=== PATIENT | male | born 1935 | race Caucasian/White ===

== ENCOUNTER 2017-06-09 10:22 | Emergency (ER) | payer MEDICARE ==
[2017-06-09 10:53] VITALS: BP 141/45
--- NOTE | 2017-06-09 11:09 | UC ---
Skin Complaint HPI - HPI Summary HPI Summary: Pt presents with c/o of facial cheek redness and mild swelling,. Pt was given PO BActrim by PCP 2 days ago for bronchitis symptoms. Pt has taken 3 PO tabs and woke this morning with bilateral facial cheek erythema and mild swelling. Denies fever or chills. is on Injectable RA medication that he self administers. Has been on RA medication for 1 year. - History of Current Complaint Chief Complaint: UCRespiratory Time Seen by Provider: 06/09/17 10:39 Stated Complaint: UPPER RESPIRATORY/FACIAL SKIN COMPLAINT Hx Obtained From: Patient Onset/Duration: Sudden Onset, Lasting Hours, Still Present Skin Exposure Onset/Duration: Hours Ago Timing: Constant Onset Severity: Mild Current Severity: Mild Location: Face Character: Redness, Raised Aggravating Factor(s): Other - unsure Alleviating Factor(s): Unknown Associated Signs & Symptoms: Positive: Rash Related History: Recent change in medication - Allergy/Home Medications Allergies/Adverse Reactions: Allergies Allergy/AdvReac Type Severity Reaction Status Date / Time Diazepam [From Valium] Allergy Unknown Verified 06/09/17 10:47 Reaction Details Oxycodone Allergy Unknown Verified 06/09/17 10:47 Reaction Details Home Medications: Home Medications Vitamin B Complex CAP* [B Complex CAP*] 1 cap PO DAILY 06/09/17 [History Confirmed 06/09/17] amLODIPine TAB* [Norvasc 5 mg TAB*] 5 mg PO DAILY 06/09/17 [History Confirmed ] Review of Systems Constitutional: Negative Skin: Rash - erythema bilateral facial cheeks Eyes: Negative ENT: Other - nasal congestion Respiratory: Cough Cardiovascular: Negative Gastrointestinal: Negative Genitourinary: Negative Motor: Decreased ROM - secondary to hx of RA Neurovascular: Negative Musculoskeletal: Arthralgia, Myalgia Neurological: Negative Psychological: Negative Is Patient Immunocompromised?: No All Other Systems Reviewed And Are Negative: Yes PMH/Surg Hx/FS Hx/Imm Hx Previously Healthy: No Cardiovascular History: Cardiac Disease Respiratory History: Bronchitis - Surgical History Surgical History: Yes Surgery Procedure, Year, and Place: Endoscopies with "bllod blisters in his stomach", 2016, [facility]; Left LAZ, 2009, [facility]; Bilateral TKA, 1994 and 1995, [facility]; Bilateral Hand and Feet Knuckle Reconstruction, [id number]; [facility]Z, [facility] - Family History Known Family History: Positive: Cardiac Disease - Social History Occupation: Retired Lives: With Family Alcohol Use: none since 1972; "alcoholic" Substance Use Type: None Smoking Status (MU): Former Smoker Length of Time of Smoking/Using Tobacco: 2 PPD x 40 Years Have You Smoked in the Last Year: No When Did the Patient Quit Smoking/Using Tobacco: 1989 - Immunization History Most Recent Influenza Vaccination: February 2017 Most Recent Pneumonia Vaccination: ~2015 Vaccination Up to Date: Yes Physical Exam Triage Information Reviewed: Yes Appearance: Well-Appearing Vital Signs: Initial Vital Signs Temp 98.9 F 06/09/17 10:42 Pulse 90 06/09/17 10:42 Resp 16 06/09/17 10:42 BP 141/45 06/09/17 10:42 Pulse Ox 90 06/09/17 10:42 Vital Signs Reviewed: Yes Eye Exam: Normal ENT Exam: Other ENT: Positive: Nasal congestion Neck exam: Normal Respiratory Exam: Other Respiratory: Positive: Normal breath sounds, No respiratory distress Cardiovascular Exam: Other Cardiovascular: Positive: Murmur:Sys:Grade _?_/ Musculoskeletal Exam: Normal Neurological Exam: Normal Psychological Exam: Normal Skin: Positive: rashes - bilateral erythema facial cheeks. mild warmth to rash. Skin in tact, no vessicles, blisters or peeling Course/Dx - Differential Diagnoses - Skin Complaint Differential Diagnoses: Cellulitis, Medication; Adverse Reaction, Odell- Hua Syndrome, Urticaria - Diagnoses Provider Diagnoses: medication adverse reaction Discharge - Discharge Plan Condition: Stable Disposition: HOME Prescriptions: Benzonatate CAP* [Tessalon 100 MG CAP*] 100 mg PO Q8H PRN #21 cap PRN Reason: Cough Cetirizine* [ZyrTEC 10 MG TAB*] 10 mg PO DAILY #10 tab Patient Education Materials: Antibiotic Medication Allergy (ED), Viral Syndrome (ED) Referrals: Oriana Flores MD [Primary Care Provider] - If Needed
== END 2017-06-09 11:19 | disposition home or self-care (01) ==
LOC: UCCORT 10:22
DX: R60.9 Edema, unspecified (principal); T37.0X5A Adverse effect of sulfonamides, initial encounter; F10.21 Alcohol dependence, in remission; M06.9 Rheumatoid arthritis, unspecified; I25.10 Atherosclerotic heart disease of native coronary artery without angina pectoris; Z88.5 Allergy status to narcotic agent; Z87.09 Personal history of other diseases of the respiratory system; Z87.891 Personal history of nicotine dependence; Z96.642 Presence of left artificial hip joint
CPT/HCPCS: 99212; G0463

== ENCOUNTER 2018-06-13 14:10 | Emergency (ER) | payer MEDICARE ==
--- OUTSIDE RECORDS SUMMARY | 2018-06-13 14:48 | XMS REPORT | Continuity of Care Document ---
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 Oriana Flores MD Primary Care Physician Unavailable Payers Type Date Identification Numbers Payment Provider Subscriber Policy Number: [id number] Medicare Tim Paris PayID: [id number] [employer] [address] [place] [address] Policy Number: [id number] [facility] Care Option Tim Paris PayID: [id number] Claims, [address] [place] [address] Advance Directives Description No Information Available Problems Date Description Provider Status Onset: 09/28/2010 Osteoporosis Oriana Flores MD Active Onset: 09/28/2010 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 Onset: 09/28/2010 Cardiovascular symptoms Oriana Flores MD Active Onset: 09/28/2010 Hyperlipidemia Oriana Flores MD Active Onset: 09/28/2010 Peripheral vascular disease Oriana Flores MD Active Onset: 09/28/2010 Rheumatoid arthritis Oriana Flores MD Active Onset: 09/28/2010 Gastroesophageal reflux disease Oriana Flores MD Active Onset: 09/28/2010 Posterior rhinorrhea Oriana Flores MD Active Onset: 09/28/2010 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 Onset: 09/28/2010 Conduction disorder of the heart Oriana Flores MD Active Onset: 09/28/2010 Abdominal pain Oriana Flores MD Active Onset: 09/28/2010 Cortical senile cataract Oriana Flores MD Active Onset: 09/28/2010 Osteochondropathy Oriana Flores MD Active Onset: 03/03/2015 Anemia due to chronic blood loss Soham Stephen MD Active Onset: 05/12/2015 Nausea and vomiting Soham Stephen MD Active Onset: 05/12/2015 Esophageal dysphagia Soham Stephen MD Active Onset: 05/17/2017 Hemorrhage of rectum and anus Soham Stephen MD Active Family History Date Family Member(s) Problem(s) Comments Mother No Current Problems First Brother Heart Disease Social History Type Date Description Comments Sex Unknown Tobacco Use Start: Unknown End: Unknown Patient is a former smoker Smoking Status Reviewed: 05/29/18 Patient is a former smoker Allergies, Adverse Reactions, Alerts Date Description Reaction Status Severity Comments 03/03/2015 Valium Active Medications Medication Date Status Form Strength Qnty SIG Indications Ordering Provider Carafate 05/07/ Active Suspension 1GM/10ML 420un 1 gm by Soham Shirley 2014 its mouth four [place], times a MD day before meals at bedtime Pantoprazole 12/30/ Active Tablets DR 40mg 90tab 1 by mouth Carola Flores 2014 s bid Oriana Hunter MD Claritin 08/27/ Active Capsules 10mg 90cap 1 po qd Mark 2014 s Oriana Hunter MD Ipratropium / Active Solution 0.03% instill 2 Unknown [place] 0000 sprays in each nostril twice a day Vitamin D / Active Tablets 1000Unit 1 by mouth Unknown 0000 every day Multivitamins / Active Unknown 0000 Methotrexate / Active Unknown Sodium 0000 Folic Acid / Active Unknown 0000 Proctocort 03/13/ Hx Cream 1% 28.35 apply to K60.0 Mark 2016 - 0unit rectal Oriana Hunter, 11/22/ s area after 2018 bowel movements and as needed Proctocort 03/13/ Hx Cream 1% 28.35 apply to K60.0 Mark 2016 - 0unit rectal Oriana Hunter, 02/14/ s area after 2018 bowel movements and as needed Proair HFA 06/23/ Hx Aerosol 108(90Bas 25.5u 2 puffs 4 J20.9 Mark 2017 - e) nits x daily Oriana Hunter, 02/14/ mcg/Act 2017 Ondansetron 11/12/ Hx Tablets 4mg 10tab take 1 Mark 2014 - Dispers s tablet by Oriana Hunter 10/28/ mouth 2015 every 6 to 8 hours if needed Ondansetron 11/12/ Hx Tablets 4mg 10tab take 1 Mark 2014 - Dispers s tablet by Oriana Hunter, 05/17/ mouth 2016 every 6 to 8 hours if needed Aspirin Ec 01/20/ Hx Tablets DR 81mg 100ta 1 by mouth 433.10 Mark Lo-Dose 2013 - every day Oriana Hunter 2017 Sulfamethoxazol 12/23/ Hx Tablets 800-160mg 14tab 1 by mouth andrea Flores/Trimethoprim 2013 twice a DILLON Diaz 2014 Sulfamethoxazol 12/23/ Hx Tablets 800-160mg 14tab 1 by mouth andrea Flores/Trimethoprim 2013 twice a DILLON Diaz 2015 Claritin 08/27/ Hx Capsules 10mg 90cap 1 po qd Mark 2013 Oriana Hunter 2015 Prednisone 00/00/ Hx Tablets 5mg 25tab 4 tabs as Unknown 0000 - s directed 2014 Humira /00/ Hx PSKT 40mg/0.8M Unknown Pediatric 0000 - L Crohns Disease 10/28/ Starter Pack 2015 Prednisone 00/00/ Hx Tablets 5mg 25tab 4 tabs as Unknown 0000 - s directed 2015 Humira Pen 00/ Hx PNKT 40mg/0.8M Unknown 0000 - L 2016 Prednisone 00/00/ Hx Tablets 5mg 25tab 4 tabs as Unknown 0000 - s directed 2016 Amlodipine 00/ Hx Tablets 5mg 1 by mouth Unknown Besylate 0000 - every day 2017 Actemra 00/ Hx Soln Prefill 162mg/0.9 infusion Unknown 0000 - Syringe ML monthly 2017 Xeljanz 00/00/ Hx Tablets 5mg 1 by mouth Unknown 0000 - twice a 2017 Prednisolone /00/ Hx Suspension 1% 1 drop in Unknown Acetate 0000 - left eye 02/14/ 3x/ day 2018 Immunizations Description No Information Available Vital Signs Date Vital Result Comment 05/29/2018 1:52pm Height 68 inches 5'8" Weight 144.00 lb BP Systolic 140 mmHg BP Diastolic 72 mmHg Heart Rate 88 /min BMI (Body Mass Index) 21.9 kg/m2 02/14/2018 2:46pm Height 68 inches 5'8" Weight 143.00 lb BP Systolic 160 mmHg BP Diastolic 72 mmHg Heart Rate 80 /min BMI (Body Mass Index) 21.7 kg/m2 11/22/2017 1:13pm Height 68 inches 5'8" Weight 141.00 lb BMI (Body Mass Index) 21.4 kg/m2 05/17/2017 3:21pm Height 68 inches 5'8" Weight 145.00 lb BP Systolic 122 mmHg BP Diastolic 80 mmHg Heart Rate 66 /min BMI (Body Mass Index) 22.0 kg/m2 10/29/2015 12:39pm Height 68 inches 5'8" Weight 135.00 lb BP Systolic 128 mmHg BP Diastolic 50 mmHg Heart Rate 92 /min BMI (Body Mass Index) 20.5 kg/m2 05/12/2015 1:13pm Height 68 inches 5'8" Weight 136.00 lb BMI (Body Mass Index) 20.7 kg/m2 03/03/2015 2:59pm Height 68 inches 5'8" Weight 138.00 lb BP Systolic 130 mmHg BP Diastolic 80 mmHg Heart Rate 78 /min BMI (Body Mass Index) 21.0 kg/m2 Results Test Date Facility Test Result H/L Range Note CBC W/Auto 05/14/2018 [facility] White Blood <pending> Differential(!) Count Ser Auto CNT RBC Red Blood Count <pending> Hemoglobin Blood <pending> Hematocrit <pending> MCV (Corpuscular Volume) <pending> MCH (Corpuscular Hemoglobin) <pending> MCHC (Corpuscular Hemog Conc) <pending> RDW <pending> Platelet Count Blood Auto CNT <pending> MPV <pending> Lymph% <pending> [place]% <pending> Neutrophil % <pending> Absolute Lymphocytes <pending> Absolute Monocytes <pending> Absolute Neutrophils <pending> CMP(!) 05/14/2018 [facility] Sodium(!) <pending> Potassium(!) <pending> Chloride Serum/Plasma(!) <pending> Carbon Dioxide Ser/Plasm(!) <pending> BUN - Urea Nitrogen(!) <pending> Calcium Ser/Plasma Mass/Vol(!) <pending> Creatinine Serum Mass/Vol(!) <pending> Glucose Serum(!) <pending> BUN/Creatinine Ratio(!) <pending> Albumin Serum/Plasma(!) <pending> Alkaline Phosphatase(!) <pending> Bilirubin Total Mass/Vol(!) <pending> Ast - Sgot <pending> Alt - SGPT <pending> Protein Total <pending> CBC Auto Diff 05/02/2018 [facility] [place] [place] White Blood Count 8.1 10^3/uL N 3.5-10.8 Red Blood Count 3.03 10^6/uL Low 4.00-5.40 Hemoglobin 8.1 g/dL Low 14.0-18.0 Hematocrit 25 % Low 42-52 Mean Corpuscular Volume 83 fL N 80-94 Mean Corpuscular Hemoglobin 27 pg N 27-31 Mean Corpuscular HGB Conc 32 g/dL N 31-36 Red Cell Distribution Width 18 % High 10.5-15 Platelet Count 361 10^3/uL N 150-450 Mean Platelet Volume 7.9 fL N 7.4-10.4 Abs Neutrophils 6.1 10^3/uL N 1.5-7.7 Abs Lymphocytes 1.0 10^3/uL N 1.0-4.8 Abs Monocytes 0.8 10^3/uL N 0-0.8 Abs Eosinophils 0.2 10^3/uL N 0-0.6 Abs Basophils 0 10^3/uL N 0-0.2 Abs Nucleated RBC 0 10^3/uL Granulocyte % 75.4 % N 38-83 Lymphocyte % 12.4 % Low 25-47 Monocyte % 9.8 % High 0-7 Eosinophil % 1.9 % N 0-6 Basophil % 0.5 % N 0-2 Nucleated Red Blood Cells % 0 CBC Auto Diff 03/27/2018 [facility] [place] [place] White Blood Count 6.9 10^3/uL N 3.5-10.8 Red Blood Count 3.80 10^6/uL Low 4.00-5.40 Hemoglobin 10.5 g/dL Low 14.0-18.0 Hematocrit 32 % Low 42-52 Mean Corpuscular Volume 84 fL N 80-94 Mean Corpuscular Hemoglobin 28 pg N 27-31 Mean Corpuscular HGB Conc 33 g/dL N 31-36 Red Cell Distribution Width 21 % High 10.5-15 Platelet Count 324 10^3/uL N 150-450 Mean Platelet Volume 8.3 um3 N 7.4-10.4 Abs Neutrophils 5.1 10^3/uL N 1.5-7.7 Abs Lymphocytes 1.0 10^3/uL N 1.0-4.8 Abs Monocytes 0.7 10^3/uL N 0-0.8 Abs Eosinophils 0.1 10^3/uL N 0-0.6 Abs Basophils 0 10^3/uL N 0-0.2 Abs Nucleated RBC 0 10^3/uL Granulocyte % 73.9 % N 38-83 Lymphocyte % 15.2 % Low 25-47 Monocyte % 9.7 % High 0-7 Eosinophil % 0.8 % N 0-6 Basophil % 0.4 % N 0-2 Nucleated Red Blood Cells % 0 Laboratory test 12/11/2017 [facility] [place] [place] Surgical SEE RESULT 1 finding Interface Order BELOW Basic Metabolic 04/04/2017 N2N/CCD Import BUN/Creatinine 14.7 1 6-22 2 Panel Ratio Calcium 9.6 mg/dL 8.6-10.3 Carbon Dioxide 31 mmol/L 20-31 Chloride 104 mmol/L 98-110 Creatinine 0.70 mg/dL 0.70-1.11 Egfr 102 ML/MIN/1.73M2 > Or=60 Egfr Non-Afr. [place] 88 ML/MIN/1.73M2 > Or=60 3 Glucose 87 mg/dL 65-99 Potassium 4.1 mmol/L 3.5-5.3 Sodium 142 mmol/L 135-146 Urea Nitrogen 10 mg/dL 7-25 4 CBC W/ Diff & PLT 04/04/2017 N2N/CCD Import Basophils,% 0 % 0-1 Basophils,Absolute 30 cells/uL 0-200 Eosinophils,% 4 % 0-4 Eosinophils,Absolute 240 cells/uL 15-500 Hematocrit 42.2 % 38.5-50.0 Hemoglobin 13.7 g/dL 13.2-17.1 Lymphocytes,Absolute 1540 cells/uL 850-3900 MCH 30.9 pg 27.0-33.0 MCHC 32.4 g/dL 32.0-36.0 MCV 95.3 FL 80.0-100.0 MPV 9.2 FL 7.5-12.5 Monocytes,% 8 % 4-12 Monocytes,Absolute 470 cells/uL 200-950 Neutrophils,Absolute 3570 cells/uL 1101-4894 Platelet Count 243 thous/uL 140-400 RBC 4.42 mill/uL 4.20-5.80 RDW 13.1 % 11.0-15.0 Total Lymphocytes,% 26 % 12-47 Total Neutrophils,% 61 % 40-75 WBC 5.8 thous/uL 3.8-10.8 Lipid Panel 04/04/2017 N2N/CCD Import Cholesterol 175 mg/dL <199 Cholesterol/HDL Ratio 5.3 CALC High <5.0 HDL Cholesterol 33 mg/dL Low >40 LDL Chol,Calculated 104 mg/dL High <100 Non-HDL Cholesterol 143 mg/dL High <130 Triglycerides 269 mg/dL High <150 5 CBC Auto Diff 05/13/2016 [facility] [place] [place] White Blood Count 7.1 10^3/uL N 3.5-10.8 Red Blood Count 4.11 10^6/uL N 4.0-5.4 Hemoglobin 12.1 g/dL Low 14.0-18.0 Hematocrit 36 % Low 42-52 Mean Corpuscular Volume 88 fL N 80-94 Mean Corpuscular Hemoglobin 29 pg N 27-31 Mean Corpuscular HGB Conc 33 g/dL N 31-36 Red Cell Distribution Width 15 % N 10.5-15 Platelet Count 308 10^3/uL N 150-450 Mean Platelet Volume 8 um3 N 7.4-10.4 Abs Neutrophils 5.0 10^3/uL N 1.5-7.7 Abs Lymphocytes 1.5 10^3/uL N 1.0-4.8 Abs Monocytes 0.5 10^3/uL N 0-0.8 Abs Eosinophils 0.1 10^3/uL N 0-0.6 Abs Basophils 0 10^3/uL N 0-0.2 Abs Nucleated RBC 0 10^3/uL N Granulocyte % 70.1 % N 38-83 Lymphocyte % 20.9 % Low 25-47 Monocyte % 6.9 % N 1-9 Eosinophil % 1.5 % N 0-6 Basophil % 0.6 % N 0-2 Nucleated Red Blood Cells % 0 N CBC Auto Diff 04/15/2016 [facility] [place] [place] White Blood Count 7.0 10^3/uL N 3.5-10.8 Red Blood Count 4.42 10^6/uL N 4.0-5.4 Hemoglobin 12.4 g/dL Low 14.0-18.0 Hematocrit 38 % Low 42-52 Mean Corpuscular Volume 86 fL N 80-94 Mean Corpuscular Hemoglobin 28 pg N 27-31 Mean Corpuscular HGB Conc 33 g/dL N 31-36 Red Cell Distribution Width 16 % High 10.5-15 Platelet Count 322 10^3/uL N 150-450 Mean Platelet Volume 8 um3 N 7.4-10.4 Abs Neutrophils 4.6 10^3/uL N 1.5-7.7 Abs Lymphocytes 1.5 10^3/uL N 1.0-4.8 Abs Monocytes 0.5 10^3/uL N 0-0.8 Abs Eosinophils 0.3 10^3/uL N 0-0.6 Abs Basophils 0.1 10^3/uL N 0-0.2 Abs Nucleated RBC 0 10^3/uL N Granulocyte % 65.6 % N 38-83 Lymphocyte % 21.5 % Low 25-47 Monocyte % 7.7 % N 1-9 Eosinophil % 4.2 % N 0-6 Basophil % 1.0 % N 0-2 Nucleated Red Blood Cells % 0 N CBC Auto Diff 03/18/2016 [facility] [place] [place] White Blood Count 6.7 10^3/uL N 3.5-10.8 Red Blood Count 4.57 10^6/uL N 4.0-5.4 Hemoglobin 12.4 g/dL Low 14.0-18.0 Hematocrit 38 % Low 42-52 Mean Corpuscular Volume 83 fL N 80-94 Mean Corpuscular Hemoglobin 27 pg N 27-31 Mean Corpuscular HGB Conc 33 g/dL N 31-36 Red Cell Distribution Width 16 % High 10.5-15 Platelet Count 299 10^3/uL N 150-450 Mean Platelet Volume 8 um3 N 7.4-10.4 Abs Neutrophils 4.3 10^3/uL N 1.5-7.7 Abs Lymphocytes 1.5 10^3/uL N 1.0-4.8 Abs Monocytes 0.6 10^3/uL N 0-0.8 Abs Eosinophils 0.2 10^3/uL N 0-0.6 Abs Basophils 0 10^3/uL N 0-0.2 Abs Nucleated RBC 0 10^3/uL N Granulocyte % 65.0 % N 38-83 Lymphocyte % 21.8 % Low 25-47 Monocyte % 9.4 % High 1-9 Eosinophil % 3.3 % N 0-6 Basophil % 0.5 % N 0-2 Nucleated Red Blood Cells % 0 N CBC Auto Diff 02/19/2016 [facility] [place] [place] White Blood Count 6.7 10^3/uL N 3.5-10.8 Red Blood Count 4.62 10^6/uL N 4.0-5.4 Hemoglobin 12.2 g/dL Low 14.0-18.0 Hematocrit 37 % Low 42-52 Mean Corpuscular Volume 81 fL N 80-94 Mean Corpuscular Hemoglobin 26 pg Low 27-31 Mean Corpuscular HGB Conc 33 g/dL N 31-36 Red Cell Distribution Width 18 % High 10.5-15 Platelet Count 275 10^3/uL N 150-450 Mean Platelet Volume 8 um3 N 7.4-10.4 Abs Neutrophils 4.2 10^3/uL N 1.5-7.7 Abs Lymphocytes 1.6 10^3/uL N 1.0-4.8 Abs Monocytes 0.6 10^3/uL N 0-0.8 Abs Eosinophils 0.3 10^3/uL N 0-0.6 Abs Basophils 0.1 10^3/uL N 0-0.2 Abs Nucleated RBC 0.02 10^3/uL N Granulocyte % 62.2 % N 38-83 Lymphocyte % 24.0 % Low 25-47 Monocyte % 9.2 % High 1-9 Eosinophil % 3.8 % N 0-6 Basophil % 0.8 % N 0-2 Nucleated Red Blood Cells % 0.3 N CBC Auto Diff 01/22/2016 [facility] [place] [place] White Blood Count 6.9 10^3/uL N 3.5-10.8 Red Blood Count 4.56 10^6/uL N 4.0-5.4 Hemoglobin 11.7 g/dL Low 14.0-18.0 Hematocrit 37 % Low 42-52 Mean Corpuscular Volume 81 fL N 80-94 Mean Corpuscular Hemoglobin 26 pg Low 27-31 Mean Corpuscular HGB Conc 32 g/dL N 31-36 Red Cell Distribution Width 20 % High 10.5-15 Platelet Count 304 10^3/uL N 150-450 Mean Platelet Volume 8 um3 N 7.4-10.4 Abs Neutrophils 4.4 10^3/uL N 1.5-7.7 Abs Lymphocytes 1.5 10^3/uL N 1.0-4.8 Abs Monocytes 0.6 10^3/uL N 0-0.8 Abs Eosinophils 0.3 10^3/uL N 0-0.6 Abs Basophils 0.1 10^3/uL N 0-0.2 Abs Nucleated RBC 0 10^3/uL N Granulocyte % 64.1 % N 38-83 Lymphocyte % 22.2 % Low 25-47 Monocyte % 8.9 % N 1-9 Eosinophil % 3.6 % N 0-6 Basophil % 1.2 % N 0-2 Nucleated Red Blood Cells % 0 N Basic Metabolic Panel 12/23/2015 [facility] [place] [place] Sodium 139 mmol/L N 133-145 Potassium 4.0 mmol/L N 3.5-5.0 Chloride 102 mmol/L N 101-111 Co2 Carbon Dioxide 29 mmol/L N 22-32 Anion Gap 8 mmol/L N 2-11 Glucose 82 mg/dL N 70-100 Blood Urea Nitrogen 12 mg/dL N 6-24 Creatinine 0.57 mg/dL Low 0.67-1.17 BUN/Creatinine Ratio 21.1 High 8-20 Calcium 9.2 mg/dL N 8.6-10.3 Egfr Non- 137.2 N >60 Egfr 176.4 N >60 6 Lipid Profile (Trig/Chol/HDL) 12/23/2015 [facility] [place] [place] Triglycerides 115 mg/dL N 7 Cholesterol 191 mg/dL N 8 HDL Cholesterol 36.9 mg/dL N 9 LDL Cholesterol 131 mg/dL N 10 Liver Function Panel 12/23/2015 [facility] [place] [place] Total Protein 7.6 g/dL N 6.4-8.9 Albumin 4.0 g/dL N 3.2-5.2 Globulin 3.6 g/dL N 2-4 Albumin/Globulin Ratio 1.1 N 1-3 Total Bilirubin 0.40 mg/dL N 0.2-1.0 Direct Bilirubin 0.10 mg/dL N 0.03-0.18 Indirect Bilirubin 0.3 mg/dL N 0.3-1.0 Alkaline Phosphatase 81 U/L N 34-104 Alt 9 U/L N 7-52 Ast 14 U/L N 13-39 Laboratory test finding 12/23/2015 [facility] [place] [place] PSA Diagnostic 1.516 ng/mL N 0- 4.000 11 CBC Auto Diff 12/23/2015 [facility] [place] [place] White Blood Count 6.3 10^3/uL N 3.5-10.8 Red Blood Count 4.28 10^6/uL N 4.0-5.4 Hemoglobin 10.5 g/dL Low 14.0-18.0 Hematocrit 34 % Low 42-52 Mean Corpuscular Volume 78 fL Low 80-94 Mean Corpuscular Hemoglobin 24 pg Low 27-31 Mean Corpuscular HGB Conc 31 g/dL N 31-36 Red Cell Distribution Width 24 % High 10.5-15 Platelet Count 403 10^3/uL N 150-450 Mean Platelet Volume 8 um3 N 7.4-10.4 Abs Neutrophils 3.9 10^3/uL N 1.5-7.7 Abs Lymphocytes 1.6 10^3/uL N 1.0-4.8 Abs Monocytes 0.6 10^3/uL N 0-0.8 Abs Eosinophils 0.2 10^3/uL N 0-0.6 Abs Basophils 0.1 10^3/uL N 0-0.2 Abs Nucleated RBC 0.01 10^3/uL N Granulocyte % 62.1 % N 38-83 Lymphocyte % 24.8 % Low 25-47 Monocyte % 9.1 % High 1-9 Eosinophil % 3.0 % N 0-6 Basophil % 1.0 % N 0-2 Nucleated Red Blood Cells % 0.1 N CBC Auto Diff 11/23/2015 [facility] [place] [place] White Blood Count 6.9 10^3/uL N 3.5-10.8 Red Blood Count 3.31 10^6/uL Low 4.0-5.4 Hemoglobin 7.5 g/dL Low 14.0-18.0 Hematocrit 26 % Low 42-52 Mean Corpuscular Volume 77 fL Low 80-94 Mean Corpuscular Hemoglobin 23 pg Low 27-31 Mean Corpuscular HGB Conc 30 g/dL Low 31-36 Red Cell Distribution Width 24 % High 10.5-15 Platelet Count 495 10^3/uL High 150-450 Mean Platelet Volume 8 um3 N 7.4-10.4 Abs Neutrophils 4.3 10^3/uL N 1.5-7.7 Abs Lymphocytes 1.6 10^3/uL N 1.0-4.8 Abs Monocytes 0.6 10^3/uL N 0-0.8 Abs Eosinophils 0.3 10^3/uL N 0-0.6 Abs Basophils 0.1 10^3/uL N 0-0.2 Abs Nucleated RBC 0 10^3/uL N Granulocyte % 62.5 % N 38-83 Lymphocyte % 23.0 % Low 25-47 Monocyte % 9.0 % N 1-9 Eosinophil % 4.0 % N 0-6 Basophil % 1.5 % N 0-2 Nucleated Red Blood Cells % 0 N Cell Morphology 11/23/2015 [facility] Microcytosis 2+ N Hypochromasia 3+ N Laboratory test finding 09/30/2015 [employer]/[facility] Import Hematocrit 28.8 % Low 38.0-48.0 Hemoglobin 8.8 gm/dL Low 12.8-17.0 Mean Cell Volume 77.6 fl Low 80.0-96.0 Mean Corpuscular HGB 23.7 pg Low 27.0-33.0 Mean Corpuscular HGB Conc 30.6 g/dL Low 31.7-36.0 Mean Platelet Volume 11.2 fL High 6.6-10.6 Platelet Count 360 K/uL 150-400 Red Blood Count 3.71 M/uL Low 4.20-5.80 Red Cell Distri Width %CV 21.9 % High 11.6-15.8 White Blood Count 11.2 K/uL High 3.4-10.5 Basic Metabolic Panel 09/30/2015 [employer]/[facility] Import Anion Gap 7 mEq/L Low 8- 16 BUN 9 mg/dL 7-18 BUN/Creat 18.0 ratio Calcium 8.2 mg/dL Low 8.5-10.1 Carbon Dioxide 29 mmol/L 21-32 Chloride 100 mmol/L 98-107 Creatinine 0.5 mg/dL Low 0.6-1.3 Glom Filtration Rate, Estimate >60 mL/min >60 Glucose 96 mg/dL 74-106 12 If >60 mL/min >60 Potassium 3.5 mmol/L 3.5-5.1 Sodium 136 mmol/L 136-145 Laboratory test finding 09/29/2015 [employer]/[facility] Import Hematocrit 27.8 % Low 38.0-48.0 Hemoglobin 8.5 gm/dL Low 12.8-17.0 Mean Cell Volume 78.1 fl Low 80.0-96.0 Mean Corpuscular HGB 23.9 pg Low 27.0-33.0 Mean Corpuscular HGB Conc 30.6 g/dL Low 31.7-36.0 Mean Platelet Volume 10.5 fL 6.6-10.6 Platelet Count 319 K/uL 150-400 Red Blood Count 3.56 M/uL Low 4.20-5.80 Red Cell Distri Width %CV 21.4 % High 11.6-15.8 White Blood Count 9.4 K/uL 3.4-10.5 Basic Metabolic Panel 09/29/2015 N2N/CCD Import Anion Gap 7 mEq/L Low 8- 16 BUN 9 mg/dL 7-18 BUN/Creat 18.0 ratio Calcium 8.4 mg/dL Low 8.5-10.1 Carbon Dioxide 28 mmol/L 21-32 Chloride 101 mmol/L 98-107 Creatinine 0.5 mg/dL Low 0.6-1.3 Glom Filtration Rate, Estimate >60 mL/min >60 Glucose 83 mg/dL 74-106 13 If >60 mL/min >60 Potassium 3.6 mmol/L 3.5-5.1 Sodium 136 mmol/L 136-145 Respiratory Culture W/Gram St 09/28/2015 N2N/CCD Import Gram Stain See Note 14 Respiratory Culture See Note 15 Laboratory test finding 09/28/2015 N2N/CCD Import Hematocrit 27.0 % Low 38.0-48.0 Hemoglobin 8.4 gm/dL Low 12.8-17.0 Mean Cell Volume 77.4 fl Low 80.0-96.0 Mean Corpuscular HGB 24.1 pg Low 27.0-33.0 Mean Corpuscular HGB Conc 31.1 g/dL Low 31.7-36.0 Mean Platelet Volume 10.5 fL 6.6-10.6 Phosphorous 2.2 mg/dL Low 2.5-4.0 Platelet Count 297 K/uL 150-400 Red Blood Count 3.49 M/uL Low 4.20-5.80 Red Cell Distri Width %CV 20.6 % High 11.6-15.8 White Blood Count 10.3 K/uL 3.4-10.5 Basic Metabolic Panel 09/28/2015 N2N/CCD Import Anion Gap 7 mEq/L Low 8- 16 BUN 11 mg/dL 7-18 BUN/Creat 22.0 ratio Calcium 7.8 mg/dL Low 8.5-10.1 Carbon Dioxide 27 mmol/L 21-32 Chloride 103 mmol/L 98-107 Creatinine 0.5 mg/dL Low 0.6-1.3 Glom Filtration Rate, Estimate >60 mL/min >60 Glucose 86 mg/dL 74-106 16 If >60 mL/min >60 Potassium 3.4 mmol/L Low 3.5-5.1 Sodium 137 mmol/L 136-145 Laboratory test 09/27/2015 [facility]N/[facility] Import C-Reactive 216.0 mg/L High < 3.0 finding Protein,Quant Haptoglobin 312 mg/dL High 34-200 Hematocrit 28.7 % Low 38.0-48.0 Hemoglobin 8.9 gm/dL Low 12.8-17.0 LDH 190 U/L 87-241 17 Mean Cell Volume 76.7 fl Low 80.0-96.0 Mean Corpuscular HGB 23.8 pg Low 27.0-33.0 Mean Corpuscular HGB Conc 31.0 g/dL Low 31.7-36.0 Mean Platelet Volume 10.6 fL 6.6-10.6 Platelet Count 303 K/uL 150-400 Red Blood Count 3.74 M/uL Low 4.20-5.80 Red Cell Distri Width %CV 19.7 % High 11.6-15.8 White Blood Count 13.5 K/uL High 3.4-10.5 Comprehensive Metabolic Panel 09/27/2015 [facility] Import Alb/Glob 0.5 ratio Albumin 2.4 g/dL Low 3.4-5.0 Alkaline Phosphatase 106 U/L 45-117 Anion Gap 8 mEq/L 8-16 BUN 11 mg/dL 7-18 BUN/Creat 18.3 ratio Bilirubin,Total 0.9 mg/dL 0.2-1.0 Calcium 8.1 mg/dL Low 8.5-10.1 Carbon Dioxide 26 mmol/L 21-32 Chloride 106 mmol/L 98-107 Creatinine 0.6 mg/dL 0.6-1.3 Globulin 4.6 g/dL High 1.9-4.3 Glom Filtration Rate, Estimate >60 mL/min >60 Glucose 82 mg/dL 74-106 18 If >60 mL/min >60 Potassium 3.6 mmol/L 3.5-5.1 SGPT/Alt 16 U/L 12-78 Sgot/Ast 27 U/L 15-37 Sodium 140 mmol/L 136-145 Total Protein 7.0 g/dL 6.4-8.2 Hemoglobin/Hematocrit 09/26/2015 N2N/CCD Import Hematocrit 27.5 % Low 38.0-48.0 Hemoglobin 8.7 gm/dL Low 12.8-17.0 Laboratory test 09/26/2015 N2N/CCD Import C-Reactive 207.0 mg/L High < 3.0 finding Protein,Quant Hematocrit 27.5 % Low 38.0-48.0 Hemoglobin 8.7 gm/dL Low 12.8-17.0 Magnesium 1.9 mg/dL 1.8-2.4 Mean Cell Volume 76.4 fl Low 80.0-96.0 Mean Corpuscular HGB 24.2 pg Low 27.0-33.0 Mean Corpuscular HGB Conc 31.6 g/dL Low 31.7-36.0 Mean Platelet Volume 9.7 fL 6.6-10.6 Phosphorous 1.1 mg/dL Low 2.5-4.0 Platelet Count 315 K/uL 150-400 Red Blood Count 3.60 M/uL Low 4.20-5.80 Red Cell Distri Width %CV 18.2 % High 11.6-15.8 White Blood Count 21.6 K/uL High 3.4-10.5 Basic Metabolic Panel 09/26/2015 [facility] Import Anion Gap 8 mEq/L 8-16 BUN 13 mg/dL 7-18 BUN/Creat 18.5 ratio Calcium 8.1 mg/dL Low 8.5-10.1 Carbon Dioxide 24 mmol/L 21-32 Chloride 109 mmol/L High 98-107 Creatinine 0.7 mg/dL 0.6-1.3 Glom Filtration Rate, Estimate >60 mL/min >60 Glucose 163 mg/dL High 74-106 19 If >60 mL/min >60 Potassium 3.5 mmol/L 3.5-5.1 Sodium 141 mmol/L 136-145 Blood Culture 09/25/2015 N2N/Red Stamp Import Blood Culture Aerobic See Note 20 Blood Culture Anaerobic See Note 21 Hemoglobin/Hematocrit 09/25/2015 N2N/CCD Import Hematocrit 29.5 % Low 38.0-48.0 Hemoglobin 9.5 gm/dL Low 12.8-17.0 Laboratory test 09/25/2015 N2N/CCD Import Aot Request Test(s) added 22 finding Laboratory test 09/25/2015 N2N/CCD Import C-Reactive 96.3 mg/L High <3.0 23 finding Protein,Quant Troponin-I 1.240 ng/mL High 24 Occult 09/25/2015 N2N/CCD Import Stool Occult Negative Negative Blood,Stool Blood-Single Spec Laboratory test 09/25/2015 N2N/CCD Import Reticulocyte See Note 25 finding Count,Automated Vitamin B12 And 09/25/2015 N2N/CCD Import Folic Acid 46.7 ng/mL High 3.1- 17.5 Folate Vitamin B12 486 pg/mL 193-986 LDL Cholesterol Profile 09/25/2015 N2N/CCD Import Cholesterol 140 mg/dL <200 26 HDL Cholesterol 38 mg/dL Low >40 27 LDL-Cholesterol 85 mg/dL < 100 28 Triglycerides 83 mg/dL <150 29 Iron-Tibc-%Sat 09/25/2015 N2N/CCD Import Serum Iron 122 g/dL 65-175 Total Iron Binding Capacity 357 g/dL 250-450 Transferrin %Saturation 34 % 12-57 Laboratory test finding 09/24/2015 N2N/CCD Import Troponin-I 0.232 ng/mL 30 Laboratory test finding 09/24/2015 N2N/CCD Import Anisocytosis 1+ Band% 4 % 0-8 Basophil% 3 % High 0-2 Blood Smear Review - MD See Note 31 CK 42 U/L 39-308 32 Crossmatch See Note 33 D-Dimer, Quantitative 1.19 ug/mL High 34 Eosinophil% 2 % 0-5 Hypochromia 2+ Lymph% 10 % Low 17-56 Metamyelocyte% 1 % High -0 Monocyte% 3 % 0-10 Neutrophils% 77 % High 33-73 Path Review: See Note 35 Platelet Estimate Slight Increase Polychromasia 0-1+ Red Blood Cells,Each Unit See Note 36 Slide Review Diff Ordered 37 Total Cells Counted 100 #CELLS Troponin-I < 0.015 ng/mL CBC W/Automated Diff 09/24/2015 N2N/CCD Import Bas% 0.2 % 0.1-1.0 Baso # 0.03 K/uL Low 0.1-0.2 Eo% 1.3 % 0.0-5.0 Eos # 0.20 K/uL 0.0-0.5 Hematocrit 19.8 % Low 38.0-48.0 Hemoglobin 5.6 gm/dL Low 12.8-17.0 Lymph # 1.61 K/uL Low 1.8-7.0 Lymph % 10.6 % Low 17.0-56.0 Mean Cell Volume 73.3 fl Low 80.0-96.0 Mean Corpuscular HGB 20.7 pg Low 27.0-33.0 Mean Corpuscular HGB Conc 28.3 g/dL Low 31.7-36.0 Mean Platelet Volume 9.7 fL 6.6-10.6 Isabela # 0.98 K/uL High 0.0-0.8 Isabela % 6.5 % 0.0-10.0 Neut# 12.35 K/uL High 1.8-7.0 Neut% 81.4 % High 33.0-73.0 Platelet Count 487 K/uL High 150-400 Red Blood Count 2.70 M/uL Low 4.20-5.80 Red Cell Distri Width %CV 16.9 % High 11.6-15.8 Red Cell Distri Width SD 43.2 fl 36-51 White Blood Count 15.2 K/uL High 3.4-10.5 Comprehensive Metabolic Panel 09/24/2015 N2N/CCD Import Alb/Glob 0.7 ratio Albumin 3.3 g/dL Low 3.4-5.0 Alkaline Phosphatase 91 U/L 45-117 Anion Gap 8 mEq/L 8-16 BUN 14 mg/dL 7-18 38 BUN/Creat 17.5 ratio Bilirubin,Total 0.2 mg/dL 0.2-1.0 Calcium 8.1 mg/dL Low 8.5-10.1 Carbon Dioxide 27 mmol/L 21-32 Chloride 106 mmol/L 98-107 Creatinine 0.8 mg/dL 0.6-1.3 39 Globulin 4.7 g/dL High 1.9-4.3 Glom Filtration Rate, Estimate >60 mL/min >60 Glucose 107 mg/dL High 74-106 40 If >60 mL/min >60 Potassium 4.3 mmol/L 3.5-5.1 SGPT/Alt 11 U/L Low 12-78 Sgot/Ast 14 U/L Low 15-37 Sodium 141 mmol/L 136-145 Total Protein 8.0 g/dL 6.4-8.2 Type And Screen 09/24/2015 [employer] Import Antibody Screen Negative Negative Patient Blood Type A Pos CBC Auto Diff 04/21/2015 [facility] [place] [place] White Blood Count 7.1 10^3/uL N 4.8-10.8 Red Blood Count 3.96 10^6/uL Low 4.0-5.4 Hemoglobin 9.0 g/dL Low 14.0-18.0 Hematocrit 29 % Low 42-52 Mean Corpuscular Volume 74 fL Low 80-94 Mean Corpuscular Hemoglobin 23 pg Low 27-31 Mean Corpuscular HGB Conc 31 g/dL N 31-36 Red Cell Distribution Width 18 % High 10.5-15 Platelet Count 424 10^3/uL N 150-450 Mean Platelet Volume 8 um3 N 7.4-10.4 Abs Neutrophils 4.8 10^3/uL N 1.5-7.7 Abs Lymphocytes 1.3 10^3/uL N 1.0-4.8 Abs Monocytes 0.7 10^3/uL N 0-0.8 Abs Eosinophils 0.3 10^3/uL N 0-0.6 Abs Basophils 0.1 10^3/uL N 0-0.2 Abs Nucleated RBC 0 10^3/uL N Granulocyte % 67.3 % N 38-83 Lymphocyte % 18.2 % Low 25-47 Monocyte % 10.0 % High 1-9 Eosinophil % 3.6 % N 0-6 Basophil % 0.9 % N 0-2 Nucleated Red Blood Cells % 0 N Laboratory test finding 01/27/2015 [employer] Import Anisocytosis Pending Bands,% Pending Bands,Absolute Pending Basophilic Stippling Pending Basophils,% 1 % Not Established Basophils,Absolute 50 cells/uL 0-200 Blast Cells,Absolute Pending Blasts,% Pending Comment Pending Eosinophils,% 4 % Not Established Eosinophils,Absolute 290 cells/uL 15-500 Hematocrit 30.6 % Low 38.5-50.0 Hemoglobin 9.6 g/dL Low 13.2-17.1 Hypochromasia Pending Iron,Total 28 g/dL Low 50-180 Lymphocytes,Absolute 1620 cells/uL 850-3900 MCH 24.0 pg Low 27.0-33.0 MCHC 31.2 g/dL Low 32.0-36.0 MCV 76.9 FL Low 80.0-100.0 MPV 8.7 FL 7.5-11.5 Macrocytosis Pending Metamyelocytes,% Pending Metamyelocytes,Absolute Pending Microcytosis Pending Monocytes,% 7 % Not Established Monocytes,Absolute 480 cells/uL 200-950 Myelocytes,% Pending Myelocytes,Absolute Pending Neutrophils,Absolute 4720 cells/uL 6227-4103 Nucleated RBC Pending Nucleated RBC,Absolute Pending Platelet Count 445 thous/uL High 140-400 Platelet Sufficiency Pending Poikilocytosis Pending Polychromasia Pending Promyelocytes,% Pending Promyelocytes,Absolute Pending RBC 3.98 mill/uL Low 4.20-5.80 RBC Morphology Pending RDW 16.6 % High 11.0-15.0 Target Cells Pending Total Lymphocytes,% 23 % Not Established Total Neutrophils,% 66 % Not Established WBC 7.2 thous/uL 3.8-10.8 1 SEE RESULT BELOW Name: TIM PARIS : [address]: Soham Stephen MD Acct: [id number] Unit: [id number] AGE: 82 Location: ENDO Re12/11/17 SEX: M Status: DEP REF SPEC: [id number] LAURA: 12/11/17-[address] [facility] [address]: Soham Stephen MD REQ: [id number] RECD: 12/11/177852 STATUS: SOUT _ ORDERED: LEVEL 4 FINAL DIAGNOSIS Colon, rectum, biopsy: -- Hyperplastic polyp. CLINICAL HISTORY Rectal bleed POST-OPERATIVE DIAGNOSIS Flex sigmoidoscopy to 15 cm ? solid stool, 3 hemorrhoids, polyp ? biopsy. GROSS DESCRIPTION The specimen is received in formalin labeled, Biopsy Rectal Polyp, and consists of a 0.8 x 0.3 x 0.1 cm speckled mariano-pink irregular soft tissue fragment which is submitted entirely in one cassette. Signed by and Reported on: Rick Holloway MD 152 END OF REPORT DEPARTMENT OF PATHOLOGY, [address] [place] [address] Rick Holloway M.D. Director [facility] # [id number] 2 FASTING 3 The upper reference limit for Creatinine is approximately 13% higher for people identified as -Tanzanian. 4 GLUCOSE REFERENCE RANGE BASED ON FASTING SPECIMEN. 5 The Nils-Keys calculation is a validated novel method that provides better accuracy than the Friedewald equation in the estimation of LDL-C, particularly when TG levels are 150-400 mg/dL and LDL-C levels are lower than 70 mg/dL. Reference: Nils HARRIS et al. Comparison of a Novel Method vs the Friedewald Equation for Estimating Low-Density Lipoprotein Cholesterol Levels From the Standard Lipid Profile. LEANNE. 2013;310(19): 4763-3009. Desirable range <100 mg/dL for patients with CHD or Diabetes and <70 mg/dL for Diabetic patients with known heart disease 6 Because ethnic data is not always readily available, this report includes an eGFR for both -Americans and non- Americans. The National Kidney Disease Education Program (NKDEP) does not endorse the use of the MDRD equation for patients that are not between the ages of 18 and 70, are , have extremes of body size, muscle mass, or nutritional status, or are non- or non-. According to the National Kidney Foundation, irrespective of diagnosis, the stage of the disease is based on the level of kidney function: Stage Description GFR(mL/min/1.73 m(2)) 1 Kidney damage with normal or decreased GFR 90 2 Kidney damage with mild decrease in GFR 60-89 3 Moderate decrease in GFR 30-59 4 Severe decrease in GFR 15-29 5 Kidney failure <15 (or dialysis) 7 Desirable <150 Borderline high 150-199 High 200-499 Very High >500 8 Desirable <200 Borderline high 200-239 High >239 9 Low <40 Desirable: 40-60 High: >60 10 Desirable: <100 mg/dL Near Optimal: 100-129 mg/dL Borderline High: 130-159 mg/dL High: 160-189 mg/dL Very High: >189 mg/dL 11 Serum levels of PSA measured using the Halima FOBO DXI Hybritech immunoassay should not be interpreted as absolute evidence of the presence or absence of disease. The PSA value should be used in conjunction with other pertinent clinical diagnostic procedures. The values obtained with different assay methods or kits cannot be used interchangeably. 12 Note: Persistent reduction for 3 months or more in an eGFR <60 mL/min/1.73 m2 defines CKD. Patients with eGFR values >/=60 mL/min/1.73 m2 may also have CKD if evidence of persistent proteinuria is present. The original MDRD equation for estimated GFR is not valid for patients less than 18 years of age. Additional information may be found at www.[email or web address]. 13 Note: Persistent reduction for 3 months or more in an eGFR <60 mL/min/1.73 m2 defines CKD. Patients with eGFR values >/=60 mL/min/1.73 m2 may also have CKD if evidence of persistent proteinuria is present. The original MDRD equation for estimated GFR is not valid for patients less than 18 years of age. Additional information may be found at [email or web address]. 14 GRAM STAIN ! >10 SQUAMOUS EPITHELIAL CELLS/LPF ! <25 WBC/LPF ! RARE GRAM POSITIVE COCCI 15 RESPIRATORY MANISHA 16 Note: Persistent reduction for 3 months or more in an eGFR <60 mL/min/1.73 m2 defines CKD. Patients with eGFR values >/=60 mL/min/1.73 m2 may also have CKD if evidence of persistent proteinuria is present. The original MDRD equation for estimated GFR is not valid for patients less than 18 years of age. Additional information may be found at [email or web address]. 17 Performed at: RN - [facility] [address] [id number] [place] Floor: Carlie Lopez MD, Phone: [phone] 18 Note: Persistent reduction for 3 months or more in an eGFR <60 mL/min/1.73 m2 defines CKD. Patients with eGFR values >/=60 mL/min/1.73 m2 may also have CKD if evidence of persistent proteinuria is present. The original MDRD equation for estimated GFR is not valid for patients less than 18 years of age. Additional information may be found at [email or web address]. 19 Note: Persistent reduction for 3 months or more in an eGFR <60 mL/min/1.73 m2 defines CKD. Patients with eGFR values >/=60 mL/min/1.73 m2 may also have CKD if evidence of persistent proteinuria is present. The original MDRD equation for estimated GFR is not valid for patients less than 18 years of age. Additional information may be found at [email or web address]. 20 NO GROWTH: FINAL REPORT 21 NO GROWTH: FINAL REPORT 22 Tests: crp Instructions: 23 CHECKED + CALLED TROP TO DR. CRAMER AT 0848 09/25/15 by LAB.PLW 24 0.0 - 0.045 ng/mL: Normal 0.046 - 0.5 ng/mL: Suggestive 0.6 - 1.5 ng/mL: Consistent 25 PT RECIEWVING BLOOD 26 Reference Guidelines*: Desirable: ........... < 200 mg/dL Borderline High: ..... 200-239 mg/dL High: ................ >=240 mg/dL * The National Cholesterol Education Program (NCEP) 27 Reference Guidelines*: Low HDL: ..... < 40 mg/dL Normal: ..... 40-60 mg/dL Desirable: ... > 60 mg/dL *The National Cholesterol Education Program(NCEP) 28 Reference Guidelines*: Optimal:........... <100 mg/dL Near Optimal....... 100-129 mg/dL Borderline High.... 130-159 mg/dL High............... 160-189 mg/dL Very High.......... >=190 mg/dL * Source: National Cholesterol Education Program (NCEP) 29 Reference Guidelines*: Normal: ............. < 150 mg/dL Borderline High: .... 150-199 mg/dL High: ............... 200-499 mg/dL Very High: .......... > 500 mg/dL * Source: National Cholesterol Education Program (NCEP) 30 0.0 - 0.045 ng/mL: Normal 0.046 - 0.5 ng/mL: Suggestive 0.6 - 1.5 ng/mL: Consistent 31 DIAGNOSIS: "PERIPHERAL SMEAR, REVIEW": - MARKED MICROCYTIC HYPOCHROMIC ANEMIA. - ABSOLUTE NEUTROPHILIA, FAVOR REACTIVE. EP/clf 0958 GENE REC'D 1 PREPARED SMEAR FOR PATH REVIEW. [facility] REVIEW CODE CODE: I Signed Electronically signed William PUGH MD 1047 32 0.0 - 0.045 ng/mL: Normal 0.046 - 0.5 ng/mL: Suggestive 0.6 - 1.5 ng/mL: Consistent 33 [id number] A POS Comp? Y 34 <=0.49 ug/mL - Low likelihood of DIC, DVT or Pulmonary Embolism >0.49 ug/mL - Additional testing should be done to rule out DIC, DVT, or Pulmonary embolism as clinically indicated. ([facility] has established a 97.89% negative predictive value for thrombotic disease when a cutoff value of 0.5 ug/mL is used.) 35 INDICATED,SLIDE SENT 36 -------- Issue -------- Unit # Bld Type Product Status Date Time User Rsrvd [id number] A POS PRE STOR LR RBC PRSMD TRFSD 09/25/15 044 LAB.TOW Unit Satisfactory? No Apparent Contamination Volume: 300 TX Begin: 09/25/15 By AutoDft [place] End: 09/25/15 By AutoDft [id number] A POS PRE STOR LR RBC PRSMD TRFSD 09/24/15 2100 LAB.RAP Unit Satisfactory? No Apparent Contamination Volume: 300 TX Begin: 09/24/15-2099 By AutoDft TX End: 09/24/15 By AutoDft [id number] A POS PRE STOR LR RBC PRSMD TRFSD 09/25/15 0623 LAB.TOW Unit Satisfactory? No Apparent Contamination Volume: 300 TX Begin: 09/25/15-622 By AutoDft TX End: 09/25/15 By AutoDft [id number] A POS PRE STOR LR RBC PRSMD TRFSD 09/25/15 0818 LAB.CMK Unit Satisfactory? No Apparent Contamination Volume: 300 TX Begin: 09/25/15 By AutoDft TX End: 09/25/15 By AutoDft 37 CHECKED + CALLED HGB TO CHANTEL Murray AT 1821 09/24/15 by PILAR 38 Values below the stated reference ranges of AST and ALT can be seen in normal populations. Clinical correlation is suggested. 39 Values below the stated reference ranges of AST and ALT can be seen in normal populations. Clinical correlation is suggested. 40 Note: Persistent reduction for 3 months or more in an eGFR <60 mL/min/1.73 m2 defines CKD. Patients with eGFR values >/=60 mL/min/1.73 m2 may also have CKD if evidence of persistent proteinuria is present. The original MDRD equation for estimated GFR is not valid for patients less than 18 years of age. Additional information may be found at [email or web address]. Procedures Date Code Description Status 03/02/2018 21946 Moderate Sedation Services; Same Phys Each Additional 15 Completed Mins 03/02/2018 71186 Moderate Sedation Services; Same Phys Each Additional 15 Completed Mins 03/02/2018 50981 Moderate Sedation Services; Same Phys Each Additional 15 Completed Mins 03/02/2018 55848 EGD+Biopsy Single Or Multiple Completed 12/11/2017 13614 Flexible Sigmoidoscopy W/ Biopsy Completed 12/01/2015 71465 EGD+Control Of Bleeding Any Method Completed 11/02/2015 41829 Endoscopy Upper GI W/ Ablation Of Tumors/Polyps/Lesions Completed 03/24/2015 57420 Endoscopy Upper GI W/ Ablation Of Tumors/Polyps/Lesions Completed Encounters Type Date Location Provider Dx Diagnosis Office Visit 02/14/2018 [facility] Soham Shirley D64.9 Anemia, 3:15p [facility] MD unspecified K62.5 Hemorrhage of anus and rectum D50.0 Iron deficiency anemia secondary to blood loss (chronic) Office Visit 11/22/2017 [facility] Soham Shirley K62.5 Hemorrhage of 1:30p [facility] MD anus and rectum Office Visit 05/17/2017 Teofilo Shirley K62.5 Hemorrhage of 3:45p [facility] MD anus and rectum Office Visit 10/29/2015 [facility] Shirley D50.0 Iron deficiency 1:00p [facility] MD anemia secondary to blood loss (chronic) Office Visit 05/12/2015 [facility] Shirley R11.2 Nausea with 1:15p [facility] vomiting, unspecified R13.14 Dysphagia, pharyngoesophageal phase Office Visit 03/03/2015 Teofilo Shirley D50.0 Iron deficiency 3:00p [facility] anemia secondary to blood loss (chronic) Plan of Treatment 05/29/2018 - Soham Stephen, MDD50.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 Regarding his regurgitation unfortunately he does have gastroparesis we did discuss further treatment of this however I really do not want to treat him with Reglan. We discussed frequent small meals. He will continue with his Ensure. 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 [place]. He believes he had a CBC checked. He needs to continue hisomeprazole. He was bleeding from the ulcer base. The clips were still in place. I asked him to call me if he experiences any black stools or if he vomits blood we will need to repeat his blood work in the next few weeks.
--- OUTSIDE RECORDS SUMMARY | 2018-06-13 14:48 | XMS REPORT | Continuity of Care Document ---
:1935 External Reference #:[id number] Author Name Soham Stephen MD Address [facility] [place] [address] Care Team Providers Name Role Phone Oriana Flores MD Care Team Information Water Valve Repairer Unavailable Oriana Flores MD Primary Care Physician Unavailable Payers Type Date Identification Numbers Payment Provider Subscriber Policy Number: [id number] Medicare Tim Paris PayID: [id number] [facility] [address] [place] [address] Policy Number: [id number] [facility] Care Option Tim Paris PayID: [id number] Claims, [address] [place] [address] Advance Directives Description No Information Available Problems [...] / Active Solution 0.03% instill 2 Unknown Whiteface 0000 sprays in each nostril twice a [...] Auto CNT <pending> MPV <pending> Lymph% <pending> Collier% <pending> Neutrophil % <pending> Absolute Lymphocytes <pending> [...] Protein Total <pending> CBC Auto Diff 05/02/2018 [facility] [place] White Blood Count 8.1 10^3/uL N 3.5-10.8 [...] Cells % 0 CBC Auto Diff 03/27/2018 [facility] [place] White Blood Count 6.9 10^3/uL N 3.5-10.8 [...] Blood Cells % 0 Laboratory test 12/11/2017 [facility] Surgical SEE RESULT 1 finding Interface Order BELOW Basic Metabolic 04/04/2017 N2N/CCD Import BUN/Creatinine 14.7 1 6-22 2 Panel Ratio Calcium 9.6 mg/dL 8.6-10.3 Carbon Dioxide 31 mmol/L 20-31 Chloride 104 mmol/L 98-110 Creatinine 0.70 mg/dL 0.70-1.11 Egfr 102 ML/MIN/1.73M2 > Or=60 Egfr Non-Afr. Barbadian 88 ML/MIN/1.73M2 > Or=60 3 Glucose 87 [...] Monocytes,Absolute 470 cells/uL 200-950 Neutrophils,Absolute 3570 cells/uL 9293-1880 Platelet Count 243 thous/uL 140-400 RBC 4.42 [...] High <150 5 CBC Auto Diff 05/13/2016 [facility] [place] White Blood Count 7.1 10^3/uL N 3.5-10.8 [...] % 0 N CBC Auto Diff 04/15/2016 [facility] [place] White Blood Count 7.0 10^3/uL N 3.5-10.8 [...] % 0 N CBC Auto Diff 03/18/2016 [facility] [place] White Blood Count 6.7 10^3/uL N 3.5-10.8 [...] % 0 N CBC Auto Diff 02/19/2016 [facility] [place] White Blood Count 6.7 10^3/uL N 3.5-10.8 [...] % 0.3 N CBC Auto Diff 01/22/2016 [facility] [place] White Blood Count 6.9 10^3/uL N 3.5-10.8 [...] % 0 N Basic Metabolic Panel 12/23/2015 [facility] Sodium 139 mmol/L N 133-145 Potassium 4.0 [...] N >60 6 Lipid Profile (Trig/Chol/HDL) 12/23/2015 [facility] [place] Triglycerides 115 mg/dL N 7 Cholesterol 191 mg/dL N 8 HDL Cholesterol 36.9 mg/dL N 9 LDL Cholesterol 131 mg/dL N 10 Liver Function Panel 12/23/2015 [facility] [place] Total Protein 7.6 g/dL N 6.4-8.9 Albumin 4.0 g/dL N 3.2-5.2 Globulin 3.6 g/dL N 2-4 Albumin/Globulin Ratio 1.1 N 1-3 Total Bilirubin 0.40 mg/dL N 0.2-1.0 Direct Bilirubin 0.10 mg/dL N 0.03-0.18 Indirect Bilirubin 0.3 mg/dL N 0.3-1.0 Alkaline Phosphatase 81 U/L N 34-104 Alt 9 U/L N 7-52 Ast 14 U/L N 13-39 Laboratory test finding 12/23/2015 [facility] PSA Diagnostic 1.516 ng/mL N 0- 4.000 11 CBC Auto Diff 12/23/2015 [facility] [place] White Blood Count 6.3 10^3/uL N 3.5-10.8 [...] % 0.1 N CBC Auto Diff 11/23/2015 [facility] [place] White Blood Count 6.9 10^3/uL N 3.5-10.8 [...] Hypochromasia 3+ N Laboratory test finding 09/30/2015 [employer] Import Hematocrit 28.8 % Low 38.0-48.0 Hemoglobin [...] K/uL High 3.4-10.5 Basic Metabolic Panel 09/30/2015 [employer] Import Anion Gap 7 mEq/L Low 8- 16 BUN 9 mg/dL 7-18 BUN/Creat 18.0 ratio Calcium 8.2 mg/dL Low 8.5-10.1 Carbon Dioxide 29 mmol/L 21-32 Chloride 100 mmol/L 98-107 Creatinine 0.5 mg/dL Low 0.6-1.3 Glom Filtration Rate, Estimate >60 mL/min >60 Glucose 96 mg/dL 74-106 12 If >60 mL/min >60 Potassium 3.5 mmol/L 3.5-5.1 Sodium 136 mmol/L 136-145 Laboratory test finding 09/29/2015 [employer] Import Hematocrit 27.8 % Low 38.0-48.0 Hemoglobin [...] Sodium 137 mmol/L 136-145 Laboratory test 09/27/2015 [facility] Import C-Reactive 216.0 mg/L High < 3.0 [...] K/uL High 3.4-10.5 Comprehensive Metabolic Panel 09/27/2015 [employer] Import Alb/Glob 0.5 ratio Albumin 2.4 g/dL [...] K/uL High 3.4-10.5 Basic Metabolic Panel 09/26/2015 [employer] Import Anion Gap 8 mEq/L 8-16 BUN 13 mg/dL 7-18 BUN/Creat 18.5 ratio Calcium 8.1 mg/dL Low 8.5-10.1 Carbon Dioxide 24 mmol/L 21-32 Chloride 109 mmol/L High 98-107 Creatinine 0.7 mg/dL 0.6-1.3 Glom Filtration Rate, Estimate >60 mL/min >60 Glucose 163 mg/dL High 74-106 19 If >60 mL/min >60 Potassium 3.5 mmol/L 3.5-5.1 Sodium 141 mmol/L 136-145 Blood Culture 09/25/2015 [employer] Import Blood Culture Aerobic See Note 20 [...] 31.7-36.0 Mean Platelet Volume 9.7 fL 6.6-10.6 Collier # 0.98 K/uL High 0.0-0.8 Collier % 6.5 % 0.0-10.0 Neut# 12.35 K/uL [...] 8.0 g/dL 6.4-8.2 Type And Screen 09/24/2015 [employer] Import Antibody Screen Negative Negative Patient Blood Type A Pos CBC Auto Diff 04/21/2015 [facility] White Blood Count 7.1 10^3/uL N 4.8-10.8 [...] % 0 N Laboratory test finding 01/27/2015 [employer] Import Anisocytosis Pending Bands,% Pending Bands,Absolute Pending [...] Myelocytes,% Pending Myelocytes,Absolute Pending Neutrophils,Absolute 4720 cells/uL 8837-0920 Nucleated RBC Pending Nucleated RBC,Absolute Pending Platelet [...] [address]: Soham Stephen MD Acct: [id number] Unit: [id number] AGE: 82 Location: ENDO Re12/11/17 SEX: M Status: DEP REF SPEC: [id number] LAURA: 12/11/17-[address] [facility] [address]: Soham Stephen MD REQ: [id number] RECD: 12/11/179147 STATUS: SOUT _ ORDERED: LEVEL 4 FINAL [...] by and Reported on: Rick Holloway MD 1521 END OF REPORT DEPARTMENT OF PATHOLOGY, [address] [place] [address] Rick Holloway M.D. Director [facility] # [id number] 2 FASTING 3 The upper reference limit for Creatinine is approximately 13% higher for people identified as -Barbadian. 4 GLUCOSE REFERENCE RANGE BASED ON FASTING [...] From the Standard Lipid Profile. LEANNE. 2013;310(19): 9515-5669. Desirable range <100 mg/dL for patients with [...] levels of PSA measured using the Hal[employer] DXI Hybritech immunoassay should not be interpreted [...] [email or web address]. 17 Performed at: RN - [facility] [address] [id number] Testing Machine Operator: Carlie Lopez MD, Phone: [phone] 18 Note: Persistent reduction for 3 months [...] 1 PREPARED SMEAR FOR PATH REVIEW. [facility] REVIEW CODE CODE: I Signed Electronically signed William PUGH MD 1047 32 0.0 - 0.045 ng/mL: Normal 0.046 - 0.5 ng/mL: Suggestive 0.6 - 1.5 ng/mL: Consistent 33 [id number] A POS Comp? Y 34 <=0.49 ug/mL - Low likelihood of DIC, DVT or Pulmonary Embolism >0.49 ug/mL - Additional testing should be done to rule out DIC, DVT, or Pulmonary embolism as clinically indicated. ([facility] has established a 97.89% negative predictive value for thrombotic disease when a cutoff value of 0.5 ug/mL is used.) 35 INDICATED,SLIDE SENT 36 -------- Issue -------- Unit # Bld Type Product Status Date Time User Rsrvd [id number] A POS PRE STOR LR RBC PRSMD TRFSD 09/25/15 044 LAB.TOW Unit Satisfactory? No Apparent Contamination Volume: 300 [place] Begin: 09/25/15 By AutoDft [place] End: 09/25/15 By AutoD[employer] [id number] A POS PRE STOR LR RBC PRSMD TRFSD 09/24/15 2100 LAB.RAP Unit Satisfactory? No Apparent Contamination Volume: 300 TX Begin: 09/24/15-2099 By AutoDft TX End: 09/24/15 By [employer] [id number] A POS PRE STOR LR RBC PRSMD TRFSD 09/25/15 0623 LAB.TOW Unit Satisfactory? No Apparent Contamination Volume: 300 TX Begin: 09/25/15-622 By AutoDft [place] End: 09/25/15 By AutoD[employer] [id number] A POS PRE STOR LR RBC PRSMD [...] [email or web address]. Procedures Date Code Description Status 03/02/2018 04822 Moderate Sedation Services; Same Phys Each Additional 15 Completed Mins 03/02/2018 78273 Moderate Sedation Services; Same Phys Each Additional 15 Completed Mins 03/02/2018 44296 Moderate Sedation Services; Same Phys Each Additional 15 Completed Mins 03/02/2018 99634 EGD+Biopsy Single Or Multiple Completed 12/11/2017 97295 Flexible Sigmoidoscopy W/ Biopsy Completed 12/01/2015 79543 EGD+Control Of Bleeding Any Method Completed 11/02/2015 13381 Endoscopy Upper GI W/ Ablation Of Tumors/Polyps/Lesions Completed 03/24/2015 04190 Endoscopy Upper GI W/ Ablation Of Tumors/Polyps/Lesions Completed Encounters Type Date Location Provider Dx Diagnosis Office Visit 02/14/2018 [facility]astroenter[facility] Soham Shirley D64.9 Anemia, 3:15p [facility] unspecified K62.5 Hemorrhage of anus and rectum D50.0 Iron deficiency anemia secondary to blood loss (chronic) Office Visit 11/22/2017 [facility]astroenter[facility] Soham D. K62.5 Hemorrhage of 1:30p [facility] [...] R13.14 Dysphagia, pharyngoesophageal phase Office Visit 03/03/2015 Gastroenterfina Shirley D50.0 Iron deficiency 3:00p [facility] anemia secondary to blood loss (chronic) Plan of Treatment No Information Available
--- NOTE | 2018-06-13 15:15 | ED ---
GI/ HPI - HPI Summary HPI Summary: This patient is a 82 year old male presenting to [facility] accompanied by with a chief complaint of dark stools since 06/11. Patient was seen 4 weeks ago for a GI bleed and similar symptoms. Patient presents to the ED as he worries that this may be a recurrence of his bleeding ulcers. Patient also notes that he has been feeling chills. The pain is rated 0/10 in severity. Symptoms aggravated by nothing. Symptoms alleviated by nothing. Patient denies chest pain, SOB - History of Current Complaint Chief Complaint: EDGIBleed Time Seen by Provider: 06/13/18 14:57 Stated Complaint: RECTAL BLEEDING Hx Obtained From: Patient Onset/Duration: Started Days Ago, Still Present Timing: Constant Severity: Mild Pain Intensity: 0 Associated Signs and Symptoms: Positive: Melena Aggravating Factor(s): Nothing Alleviating Factor(s): Nothing - Allergy/Home Medications Allergies/Adverse Reactions: Allergies Allergy/AdvReac Type Severity Reaction Status Date / Time diazepam [From Valium] Allergy Pt states Verified 03/02/18 14:20 "makes me crazy" oxycodone Allergy Unknown Verified 06/13/18 15:21 Reaction Details Home Medications: Home Medications Folic Acid TAB* [Folvite TAB*] 1 mg PO DAILY 06/13/18 [History Confirmed ] Methotrexate TAB* 2.5 mg PO WEEKLY 06/13/18 [History Confirmed 06/13/18] PMH/Surg Hx/FS Hx/Imm Hx Previously Healthy: No Cardiovascular History: Reports: Hx Hypertension GI History: Reports: Other GI Disorders - GI bleed Sensory History: Denies: Hx Cataracts Opthamlomology History: Denies: Hx Legally Blind EENT History: Denies: Hx Deafness - Surgical History Surgery Procedure, Year, and Place: Endoscopies with "bllod blisters in his stomach", 2016, [facility]; Left LAZ, 2009, [facility]; Bilateral TKA, 1994 and 1995, [facility]; Bilateral Hand and Feet Knuckle Reconstruction, [id number]; Left LAZ, 1989, [facility] Infectious Disease History: No Infectious Disease History: Denies: Traveled Outside the [place] in Last 30 Days - Family History Known Family History: Positive: Cardiac Disease - Social History Alcohol Use: None Hx Substance Use: No Substance Use Type: Reports: None Hx Tobacco Use: Yes Smoking Status (MU): Former Smoker Length of Time of Smoking/Using Tobacco: 2 PPD x 40 Years Have You Smoked in the Last Year: No Review of Systems Positive: Chills. Negative: Fever Negative: Chest Pain Negative: Shortness Of Breath Gastrointestinal: Other - black stools All Other Systems Reviewed And Are Negative: Yes Physical Exam - Summary Physical Exam Summary: Appearance: Well appearing, no pain distress Skin: warm, dry, reflects adequate perfusion Head/face: normal Eyes: EOMI, NORM ENT: mucous membranes moist Neck: supple, non-tender Respiratory: CTA, breath sounds present Cardiovascular: RRR, pulses symmetrical Abdomen: non-tender, soft Bowel Sounds: present Musculoskeletal: normal, strength/ROM intact Neuro: normal, sensory motor intact, A&Ox3 Triage Information Reviewed: Yes Vital Signs On Initial Exam: Initial Vitals Temp Pulse Resp BP Pulse Ox 98.7 F 86 16 151/59 97 06/13/18 14:34 06/13/18 14:34 06/13/18 14:34 06/13/18 14:34 06/13/18 14:34 Vital Signs Reviewed: Yes Diagnostics - Vital Signs Vital Signs Temp Pulse Resp BP Pulse Ox 06/13/18 14:34 98.7 F 86 16 151/59 97 - Laboratory Result Diagrams: 06/13/18 15:49 06/13/18 15:49 Lab Statement: Any lab studies that have been ordered have been reviewed, and results considered in the medical decision making process. - EKG 1518 Cardiac Rate: NL EKG Rhythm: Sinus Rhythm - 78 BPM Summary of EKG Findings: An EKG, taken 1518, reveals NSR (78 BPM), Normal axis, normal intervals, normal [facility] Course/Dx - Course Course Of Treatment: Nurse's notes reviewed. Patient on chronic iron for iron deficiency anemia related to GI bleeding. His hemoglobin is stable at 8.9 today. The Hemoccult is negative. There is only small flecks of black in it. He is to see GI in the next several days and will follow-up with any persistent or worsened melena. Vitals are otherwise stable. - Diagnoses Differential Diagnoses - Male: Other - GI bleeding, peptic ulcer disease, gastritis Provider Diagnoses: Anemia, History of GI bleed Discharge - Sign-Out/Discharge Documenting (check all that apply): Patient Departure - Discharge Plan Condition: Improved Disposition: HOME Patient Education Materials: Iron Deficiency Anemia (ED) Referrals: Soham Stephen MD [Medical Doctor] - Oriana Flores MD [Primary Care Provider] - Additional Instructions: Call your GI physician first thing in the morning. You may have intermittent dark stools from the iron. Return to the ER with lightheadedness/weakness, very black stools, worse, new symptoms or other concerns. Call your family physician to follow-up in the morning as well. - Billing Disposition and Condition Condition: IMPROVED Disposition: Home - Attestation Statements Document Initiated by Ntiin: Yes Documenting Scribe: Matt Johnson Provider For Whom Nitin is Documenting (Include Credential): Jacques Hoffman MD Scribe Attestation: Matt King scribed for Jacques Hoffman MD on 06/13/18 at 1944. Scribe Documentation Reviewed: Yes Provider Attestation: The documentation as recorded by the Matt srinivasan accurately reflects the service I personally performed and the decisions made by Jacques watkins MD Status of Scribandrea Document: Viewed
[2018-06-13 16:14] LABS: Albumin 3.3 g/dL (3.2-5.2); Albumin/Globulin Ratio 0.9 (1-3); Calcium 9.1 mg/dL (8.6-10.3); EGFR Non-African American 123.9 (>60); Globulin 3.8 g/dL (2-4); Potassium 4.2 mmol/L (3.5-5.0); Total Bilirubin 0.3 mg/dL (0.2-1.0); Total Protein 7.1 g/dL (6.4-8.9)
[2018-06-13 16:15] LABS: Activated Partial Thrombo Time 32.6 seconds (26.0-36.3); INR 1.21 (0.77-1.02)
[2018-06-13 16:22] LABS: ABS Basophils 0 10^3/ul (0-0.2); ABS Eosinophils 0.1 10^3/ul (0-0.6); ABS Lymphocytes 0.7 10^3/ul (1.0-4.8); ABS Monocytes 0.5 10^3/ul (0-0.8); ABS Neutrophils 6.1 10^3/ul (1.5-7.7); ABS Nucleated RBC 0 10^3/ul; Eosinophil % 1.7 %; Hematocrit 28 % (42-52); Hemoglobin 8.9 g/dl (14.0-18.0); Mean Corpuscular HGB Conc 32 g/dl (31-36); Mean Corpuscular Hemoglobin 25 pg (27-31); Mean Corpuscular Volume 78 fL (80-94); Mean Platelet Volume 7.7 fL (7.4-10.4); Nucleated Red Blood Cells % 0.1; Platelet Count 449 10^3/ul (150-450); Red Blood Count 3.53 10^6/ul (4.00-5.40); Red Cell Distribution Width 17 % (10.5-15); White Blood Count 7.5 10^3/ul (3.5-10.8)
[2018-06-13] MEDS ORDERED: Omeprazole CAP* 20 MG PO ONE (16:46)
[2018-06-13 16:58] VITALS: BP 138/59
== END 2018-06-13 16:59 | disposition home or self-care (01) ==
LOC: ED 14:10
DX: D64.9 Anemia, unspecified (principal); Z87.19 Personal history of other diseases of the digestive system; Z87.891 Personal history of nicotine dependence
CPT/HCPCS: 36415; 80053; 82272; 85025; 85610; 85730; 86850; 86900; 86901; 93005; 99282; A9270-GY